=== PATIENT | male | born 1975 | race Caucasian/White ===

== ENCOUNTER → 2023-04-21 15:49 | Outpatient (BNVA) | payer OTHER, SELFPAY | PROVIDERS: PCP Family Medicine; Visit Provider Internal Medicine Cardiovascular Disease | DX: R07.9 Chest pain, unspecified (principal); R06.02 Shortness of breath | CPT/HCPCS: 36415; 80048; 83880; 93005 ==

== ENCOUNTER 2023-05-10 14:55 | Outpatient (CLI) | payer OTHER, SELFPAY ==
--- NOTE | 2023-05-10 15:00 | USCV_ITS ---
Malvin Senior Age: 47 Gender: M : 1975 Exam Date: 05/10/2023 15:44 Ordering Phys: Modesta Ward MD ([email or web address]) Technologist: Sveta Meier Exam Location: [facility] – [place] Indication: CM, CHF BP: 100 / 78 HR: 70 Rhythm: Sinus Technical Quality: Adequate MEASUREMENTS (Male / Female) Normal Values 2D ECHO LV Diastolic Diameter PLAX 5.9 cm 4.2 - 5.9 / 3.9 - 5.3 cm LV Systolic Diameter PLAX 5.2 cm IVS Diastolic Thickness 1.7 cm 0.6 - 1.0 / 0.6 - 0.9 cm IVS Systolic Thickness 1.5 cm LVPW Diastolic Thickness 1.7 cm 0.6 - 1.0 / 0.6 - 0.9 cm LVPW Systolic Thickness 1.6 cm LVOT Diameter 2.1 cm LV Ejection Fraction 2D Teich 25.9 % LV Ejection Fraction MOD 2C 37.3 % LV Ejection Fraction 2C AL 42.9 % LA Diameter 3.6 cm LA Width 3.2 cm LA Height 4.3 cm RA Width 3.2 cm Aorta at Sinotubular Diameter 3.5 cm IVC Diameter 1.5 cm M-MODE Aortic Annulus Diameter 3.0 cm LA Ao Ratio MM 1.3 MV E Point Septal Separation 1.9 cm DOPPLER AV Peak Velocity 115.0 cm/s LVOT Peak Velocity 75.0 cm/s AV Area Cont Eq vti 2.2 cm squared AV Area Cont Eq pk 2.2 cm squared MV Peak Velocity 68.0 cm/s MV Area PHT 2.8 cm squared Mitral E to A Ratio 0.9 MV E' Velocity 29.0 cm/s Mitral E to MV E' Ratio 15.7 Mitral E to LV E' Lateral Ratio 20.3 Mitral E to LV E' Septal Ratio 12.7 TR Peak Velocity 85.3 cm/s TR Peak Gradient 2.9 mmHg Right Atrial Pressure 5.0 mmHg Pulmonary Artery Systolic Pressu 7.9 mmHg PV Peak Velocity 81.0 cm/s RV Acceleration Time 0.1 s RV Ejection Time 0.3 s RV AcT/ET 0.4 FINDINGS Left Ventricle Diffuse hypokinesia left ventricle with an ejection fraction of around 39%. Mildly dilated LV cavity. Right Ventricle Normal right ventricular systolic function. Right Atrium Normal right atrial size. Left Atrium Normal left atrial size. Mitral Valve No gross abnormalities noted Aortic Valve Thickened aortic valve. Tricuspid Valve No gross abnormalities noted Pulmonic Valve Minimally thickened Pericardium No pericardial effusion. Aorta Normal aortic annulus size. IVC Normal inferior vena cava. CONCLUSIONS Diffuse hypokinesia left ventricle with an ejection fraction of around 39%. Mildly dilated LV cavity. Thickened aortic valve. There is no pericardial effusion. There are no intracardiac masses. No significant stenotic or regurgitant lesions, based on the color-flow Doppler examination No similar previous studies are available for comparison Dr Modesta Ward MD [facility] (Electronically Signed) Final Date: 13 May 2023 09:15 S
== END 2023-05-10 14:56 | disposition home or self-care (01) ==
LOC: RAD 14:59
PROVIDERS: PCP Family Medicine; Visit Provider Internal Medicine Cardiovascular Disease
DX: R06.09 Other forms of dyspnea (principal); I50.9 Heart failure, unspecified; I35.8 Other nonrheumatic aortic valve disorders
CPT/HCPCS: 93306